=== PATIENT | male | born 1960 | race Caucasian/White ===

== ENCOUNTER 2018-07-08 14:11 | Emergency (ER) | payer MEDICARE, OTHER ==
[~2018-07-08] VITALS: Ht 177.8 cm; Wt 81.0 kg
[2018-07-08 14:21] VITALS: Ht 177.8 cm; Wt 81.0 kg
[2018-07-08] MEDS ORDERED: SOD CHLORIDE 0.9% 500 ML IV STA (17:21)
[2018-07-08] MEDS ORDERED: LEVETIRACETAM 1000 MG (PMX) 100 ML IVPB STA (17:21)
[2018-07-08] MEDS ORDERED: RISP1TAB3 PO (17:47)
[2018-07-08] MEDS ORDERED: ISOS30TA67 PO (17:47)
[2018-07-08] MEDS ORDERED: GABA-526 PO (17:47)
[2018-07-08] MEDS ORDERED: LOSA50TA14 PO (17:48)
[2018-07-08] MEDS ORDERED: LEVE10006 PO (17:49)
[2018-07-08] MEDS ORDERED: ALLO100T PO (17:51)
[2018-07-08] MEDS ORDERED: OXYB15TA PO (17:51)
[2018-07-08] MEDS ORDERED: CARB1TAB34 PO (17:52)
[2018-07-08] MEDS ORDERED: LEVO25TA6 PO (17:52)
[2018-07-08] MEDS ORDERED: MELO15TA30 PO (17:52)
[2018-07-08] MEDS ORDERED: OMEP20CA16 PO (17:53)
[2018-07-08] MEDS ORDERED: ATOR20TA38 PO (17:53)
[2018-07-08] MEDS ORDERED: CLOP75TA19 PO (17:53)
[2018-07-08] MEDS ORDERED: TRAZ-149 PO (17:54)
[2018-07-08] MEDS ORDERED: FLUO20CA22 PO (17:54)
[2018-07-08] MEDS ORDERED: NORT75CA PO (17:54)
[2018-07-08] MEDS ORDERED: METO-448 PO (17:55)
[2018-07-08] MEDS ORDERED: ABAC1TAB14 PO (17:56)
[2018-07-08] MEDS ORDERED: ICOS1CAP PO (17:57)
[2018-07-08] MEDS ORDERED: RANO500T2 PO (17:58)
[2018-07-08] MEDS ORDERED: OLME20TA20 PO (17:58)
[2018-07-08] MEDS ORDERED: ASPI-817 PO (17:58)
[2018-07-08] MEDS ORDERED: FOLI-49 PO (17:59)
[2018-07-08] MEDS ORDERED: DARU800T2 PO (17:59)
[2018-07-08] MEDS ORDERED: RITO100T PO (18:00)
[2018-07-08] MEDS ORDERED: [UNRECOGNIZED DRUG - CODE] PO (18:01)
[2018-07-08] MEDS ORDERED: CLON1TAB13 PO (18:02)
[2018-07-08] MEDS ORDERED: FER325 PO (18:03)
[2018-07-08] MEDS ORDERED: HYDR-4011 PO (18:03)
--- NOTE | 2018-07-08 19:56 | ERD ---
ER Documentation Chief Complaint Chief Complaint pt is bib friend with c/o fall s/p seizure, pt in wheelchair slightly pale HPI This is a 57-year-old male with multiple comorbidities including seizure disorder who is presenting after a fall status post a seizure this afternoon. The patient feels slightly fatigued, but he is currently at his baseline. The patient reports compliance with his medication, but sometimes he does have breakthrough seizures. The patient does not endorse any alleviating or exacerbating factors. He does not endorse a head injury. He does not currently have any headache or vision changes. The patient has had no focal deficits. The patient has had no weakness or numbness or tingling to the face or extremities. The patient denies feeling sick recently. The patient denies fever or chills. The patient does not endorse neck or back pain. The patient denies lightheadedness or dizziness. The patient has had no chest pain or trouble breathing. The patient denies nausea or vomiting. The patient denies abdominal pain. The patient denies changes to bowel movements or urination. ROS All systems reviewed and are negative except as per history of present illness. Medications Home Meds Reported Medications Hydrocodone/Acetaminophen ([place] 5-325 Tablet) 1 Each Tablet, 1 EACH PO BID, TAB 07/08/18 Ferrous Sulfate* (Ferrous Sulfate*) 325 Mg Tabec, 325 MG PO DAILY, TAB 07/08/18 Clonazepam* (Clonazepam*) 1 Mg Tablet, 1.5 MG PO QHS PRN for ANXIETY, TAB 07/08/18 Lamivudine* (Epivir*) 150 Mg Tablet, 300 MG PO DAILY, TAB 07/08/18 Ritonavir* (Norvir*) 100 Mg Tablet, 100 MG PO DAILY, TAB 07/08/18 Folic Acid* (Folic Acid*) 1 Mg Tablet, 1 MG PO DAILY, TAB 07/08/18 Darunavir* (Prezista*) 800 Mg Tablet, 800 MG PO DAILY, TAB 07/08/18 Aspirin* (Aspirin* EC) 81 Mg Tablet.dr, 81 MG PO DAILY, TAB 07/08/18 Olmesartan Medoxomil (Benicar) 20 Mg Tablet, 20 MG PO DAILY, #30 TAB 07/08/18 Ranolazine* (Ranexa*) 500 Mg Tab.sr.12h, 1000 MG PO Q12, TAB 07/08/18 Icosapent Ethyl (VASCEPA) 1 Gm Capsule, 2 GM PO BID, CAP 07/08/18 Abacavir Sulfate/Lamivudine (Abacavir-Lamivudine 600-300 mg) 1 Each Tablet, 1 EACH PO DAILY, TAB 07/08/18 Metoprolol Tartrate* (Lopressor*) 25 Mg Tab, 25 MG PO BID, #60 TAB 07/08/18 Trazodone Hcl* (Desyrel*) 50 Mg Tab, 50 MG PO QHS, #30 TAB 07/08/18 Fluoxetine Hcl* (Fluoxetine Hcl*) 20 Mg Capsule, 20 MG PO DAILY, CAP 07/08/18 Nortriptyline Hcl* (Nortriptyline Hcl*) 75 Mg Capsule, 75 MG PO HS, TAB 07/08/18 Clopidogrel Bisulfate* (Clopidogrel Bisulfate*) 75 Mg Tablet, 75 MG PO DAILY, #30 TAB 07/08/18 Omeprazole* (Omeprazole*) 20 Mg Capsule.dr, 20 MG PO DAILY, #30 CAP 07/08/18 Atorvastatin Calcium* (Atorvastatin Calcium*) 20 Mg Tablet, 20 MG PO QHS, #30 TAB 07/08/18 Meloxicam* (Mobic*) 15 Mg Tablet, 15 MG PO DAILY, #30 TAB 07/08/18 Levothyroxine Sodium* (Levothyroxine Sodium*) 25 Mcg Tablet, 25 MCG PO BEFORE BREAKFAST, #30 TAB 07/08/18 Carbidopa/Levodopa (Carbidopa-Levodopa 25-100 Tab) 1 Each Tablet, 1 EACH PO TID, TAB 07/08/18 Allopurinol* (Allopurinol*) 100 Mg Tablet, 100 MG PO DAILY, TAB 07/08/18 Oxybutynin Chloride (Oxybutynin Chloride ER) 15 Mg Tab.er.24, 15 MG PO DAILY, TAB 07/08/18 Levetiracetam* (Levetiracetam*) 1,000 Mg Tablet, 1000 MG PO BID, TAB 07/08/18 Risperidone* (Risperidone*) 1 Mg Tablet, 1 MG PO DAILY, TAB 07/08/18 Gabapentin* (Gabapentin*) 600 Mg Tablet, 1200 MG PO TID, #60 TAB 07/08/18 Isosorbide Mononitrate* (Isosorbide Mononitrate*) 30 Mg Tab.er.24h, 30 MG PO DAILY, TAB 07/08/18 Discontinued Reported Medications Losartan Potassium* (Losartan Potassium*) 50 Mg Tablet, 50 MG PO DAILY, TAB 07/08/18 Allergies Allergies: Coded Allergies: No Known Allergy (Unverified , 07/08/18) PMhx/Soc History of Surgery: Yes Anesthesia Reaction: No Hx Neurological Disorder: Yes (Seizure disorder, Parkinson disease, stroke with residual left-sided deficits) Hx Cardiac Disorders: Yes (Hypertension, CHF) Hx Psychiatric Problems: Yes (Depression, anxiety) Hx Miscellaneous Medical Probl: Yes (Hypothyroidism, HIV, GERD) Hx Alcohol Use: No (occassional) Hx Substance Use: No Hx Tobacco Use: No Smoking Status: Former smoker FmHx Family History: No diabetes Physical Exam Vitals Vital Signs Date Temp Pulse Resp B/P (MAP) Pulse Ox O2 O2 Flow FiO2 Time Delivery Rate 07/08/18 69 19 177/8 (64) 98 Room Air 17:10 07/08/18 98.3 75 20 117/76 98 14:21 (90) Physical Exam Const: No apparent distress, well-developed, well-nourished Head: Normocephalic, Atraumatic Eyes: Normal Conjunctiva. Extraocular movements intact. Pupils equal, round and reactive to light ENT: Normal External Ears, Nose and Mouth. Neck: Full range of motion. No meningismus. Resp: Clear to auscultation bilaterally, No wheezes, rales or rhonchi Cardio: Regular rate and rhythm. No murmurs, rubs or gallops Abd: Soft, non tender, non distended. Normal bowel sounds Skin: No petechiae or rashes Back: No midline tenderness. No CVA tenderness Ext: No cyanosis, or edema Neur: Awake and alert, oriented 4. Cranial nerves intact. Chronic unchanged left facial droop and left hemiplegia. Psych: Normal Mood and Affect Result Diagram: 07/08/18 1701 07/08/18 1701 Results 24 hrs Laboratory Tests Test 07/08/18 17:01 07/08/18 17:20 White Blood Count 4.9 10^3/ul Red Blood Count 3.64 10^6/ul Hemoglobin 12.2 g/dl Hematocrit 35.6 % Mean Corpuscular Volume 97.8 fl Mean Corpuscular Hemoglobin 33.5 pg Mean Corpuscular Hemoglobin Concent 34.3 g/dl Red Cell Distribution Width 13.2 % Platelet Count 248 10^3/UL Mean Platelet Volume 8.5 fl Immature Granulocytes % 0.800 % Neutrophils % 66.3 % Lymphocytes % 24.6 % Monocytes % 7.7 % Eosinophils % 0.4 % Basophils % 0.2 % Nucleated Red Blood Cells % 0.0 /100WBC Immature Granulocytes # 0.040 10^3/ul Neutrophils # 3.3 10^3/ul Lymphocytes # 1.2 10^3/ul Monocytes # 0.4 10^3/ul Eosinophils # 0.0 10^3/ul Basophils # 0.0 10^3/ul Nucleated Red Blood Cells # 0.0 10^3/ul Prothrombin Time 13.2 Sec Prothrombin Time Ratio 1.0 INR International Normalized Ratio 0.99 Sodium Level 134 mmol/L Potassium Level 4.5 mmol/L Chloride Level 95 mmol/L Carbon Dioxide Level 29 mmol/L Anion Gap 10 Blood Urea Nitrogen 16 mg/dl Creatinine 1.20 mg/dl Est Glomerular Filtrat Rate mL/min > 60 mL/min Glucose Level 93 mg/dl Calcium Level 10.2 mg/dl Total Bilirubin 0.2 mg/dl Direct Bilirubin 0.00 mg/dl Indirect Bilirubin 0.2 mg/dl Aspartate Amino Transf (AST/SGOT) 30 IU/L Alanine Aminotransferase (ALT/SGPT) < 6 IU/L Alkaline Phosphatase 71 IU/L Total Protein 8.4 g/dl Albumin 4.8 g/dl Globulin 3.60 g/dl Albumin/Globulin Ratio 1.33 Urine Color YELLOW Urine Clarity CLEAR Urine pH 5.0 Urine Specific [place] 1.010 Urine Ketones NEGATIVE mg/dL Urine Nitrite NEGATIVE mg/dL Urine Bilirubin NEGATIVE mg/dL Urine Urobilinogen NEGATIVE mg/dL Urine Leukocyte Esterase NEGATIVE Kiersten/ul Urine Hemoglobin NEGATIVE mg/dL Urine Glucose NEGATIVE mg/dL Urine Total Protein NEGATIVE mg/dl Current Medications Medications Dose Sig/Veronica Start Time Status Last (Trade) Ordered Route PRN Stop Time Admin Dose Reason Admin Sodium 500 ml @ Q1H STAT 07/08/18 DC 07/08/18 Chloride 500 mls/hr IV 17:21 18:22 07/08/18 18:20 100 ml @ ONCE STAT 07/08/18 DC 07/08/18 Levetiracetam 400 mls/hr IVPB 17:21 18:22 07/08/18 17:35 Procedures/[facility] The patient's presentation warrants further investigation. Previous medical records, if available, were reviewed. LABS The patient's laboratory testing was obtained and reviewed. No emergent treatment was required unless described below. CBC: No E/o systemic infection or thrombocytopenia. Mild normocytic anemia. Chemistry: No E/o severe acidosis or alkalosis or renal failure or liver disease or diabetic ketoacidosis PT/INR: No E/o significant coagulopathy Urine: No E/o acute infection or hematuria EKG EKG read by me: Rate/Rhythm: Regular rate and rhythm at a rate of 66 bpm Intervals: Prolonged PA interval indicating a first-degree AV block. Wide QR S indicating a nonspecific intraventricular block Curlew: Normal Impression: No evidence of acute ischemia or arrhythmia IMAGING Imaging and Radiology interpretation reviewed. CT Head FINDINGS: No acute intracranial hemorrhage is identified. No extra-axial fluid collection is seen. There is no mass effect. No midline shift is identified. The ventricles and sulci are unremarkable. The density of the visualized brain appears unremarkable. Visualized mithcell-white junctions are preserved. Athero sclerotic calcifications of the proximal intracranial arteries are noted. Calvarium and skull base are intact. Mastoid air cells and imaged paranasal sinuses grossly clear. IMPRESSION: No acute intracranial pathology identified. Electronically viewed and signed by .Franko Askew MD, MD on 07/08/2018 18:10 CXR FINDINGS: The cardiomediastinal silhouette is within normal limits. The lungs are clear. No signs of pleural fluid or pneumothorax are seen. The osseous structures and soft tissues are unremarkable. IMPRESSION: No evidence for acute cardiopulmonary disease. Electronically viewed and signed by .Lydia Maldonado MD, on 07/08/2018 18:32 TREATMENT/DISPOSITION The patient presents for breakthrough seizure. He has since returned to baseline. Patient was bolused with a dose of Keppra in the emergency department. The patient was observed in the ER without any recurrence of seizure. The patient has a reassuring physical exam. The patient is not clinically orthostatic. The patient is not dizzy. I have decreased suspicion for vertigo. The patient has no signs of emergent or symptomatic anemia. The patient does not have any emergent electrolyte or metabolic emergencies. I have decrease suspicion for a thyroid disorder. The patient is not toxic appearing. I have decreased suspicion for an infectious etiology of symptoms. The patient's EKG is reassuring. I have low suspicion for acute coronary syndrome. I do not see evidence of any emergent cardiac arrhythmia, which includes but is not limited to heart block, Brugada syndrome or WPW. The patient has no heart murmurs or rales. There is no evidence of cardiomegaly on exam or chest xray. I have low suspicion for hypertrophic cardiomyopathy. I do not see evidence of CHF. The patient does not endorse any chest or pleuritic pain. The history is negative for bleeding or clotting disorders. The patient has not been involved in any recent prolonged trips or surgeries or hospitalizations. The patient has no calf tenderness or swelling. I have decreased suspicion for PE as the etiology of symptoms. The patient has no focal deficits. The patient CT of the head is unremarkable. The neurologic exam is reassuring. I have decreased suspicion for cerebral ischemia. There was no trauma or injury. There is no personal or family history of cerebral aneurysm. I have decreased suspicion for SAH or other ICH. I have low suspicion for temporal arteritis, cavernous venous thrombosis, subdural hematoma, epidural hematoma, meningitis. DISCHARGE Upon reevaluation of the patient, symptoms have improved. No emergent diagnoses were identified. At this time, I feel that the patient stable for discharge. The patient was instructed to follow-up with a primary care physician in 1-3 days. The patient will be given strict precautions with which to return to the emergency department. Prescriptions: None The patient's blood pressure was elevated at greater than 120/80 while in the emergency department. The patient was otherwise stable with no evidence of hypertensive urgency or emergency. The patient does not require admission for blood pressure control. I have discussed with the patient the risks of hyperten mayo. I have instructed the patient to return to the ER for any new or worsening symptoms including chest pain, shortness of breath, headache, blurred vision, confusion, nausea, vomiting or LOC. I have advised the patient to follow up with the primary care physician for outpatient monitoring and treatment for hypertension in 1-3 days. Disclaimer: Inadvertent spelling and grammatical errors are likely due to EHR/dictation software use and do not reflect on the overall quality of patient care. Note that the electronic time recorded on this note does not necessarily reflect the actual time of the patient encounter. Departure Diagnosis: Primary Impression: Breakthrough seizure Additional Impressions: History of seizure disorder Normocytic anemia History of CVA with residual deficit Condition: Stable Patient Instructions: Seizure, Recurrent [Adult], Anemia Additional Instructions: Thank you for for coming to [facility] for your care today. Please ask your nurse or provider if you have questions about your care today and do not leave until all your questions have been answered. Please use any medications given as directed and follow-up with your doctor (or the doctor you were referred to) in the next 1-3 days. If you do not have a primary care doctor you may follow up at the [facility] or [facility] (listed below). You may also use motrin and tylenol as needed for fever and/or pain unless instructed otherwise by your provider or nurse. Indications for more urgent follow-up have been discussed, but you may return to the Emergency Department at ANY time for any worrisome or worsening symptoms. If you have abdominal pain, please know that no test or exam you received is perfect and you should follow up within 8 hours for continued pain. If you had any imaging studies today, such as an X-Ray or CT Scan, these studies will be reviewed later by a radiologist. You will be called if there are important findings that were not identified today, so make sure the contact information you provided at registration is correct. If you received any narcotic pain control medicine today, such as Vicodin, Morphine or Dilaudid, your coordination and judgment may be affected for a number of hours. Please do not drive or operate heavy machinery, and you may want someone to assist you at home. If you were given a prescription for narcotic medication, be aware that it is very addictive- use sparingly and only if necessary. PLEASE SEEK FURTHER EVALUATION AND MANAGEMENT AT YOUR DOCTORS OFFICE WITHIN THE NEXT 1-3 DAYS. IT IS YOUR RESPONSIBILITY TO MAKE AN APPOINTMENT FOR FOLOW-UP CARE. IF YOU HAVE A PRIMARY DOCTOR, PLEASE CALL THEIR OFFICE TO SCHEDULE AN APPOINTMENT FOR FOLLOW UP. IF YOU DO NOT HAVE A PRIMARY DOCTOR YOU CAN CALL OUR PHYSICIAN REFERRAL HOTLINE AT IF YOU CAN NOT AFFORD TO SEE A PHYSICIAN YOU CAN CHOSE FROM THE FOLLOWING [facility] CL[facility]ICS: [facility] [address] [facility]. [facility] [address] [facility] [address] [facility] [address] [facility] [address] [facility]. [facility]. [address] LYDIA MEJIA MD July 08, 2018 19:54
[2018-07-08 20:20] VITALS: BP 178/91; PULSE 66; RESP 19
== END 2018-07-08 20:52 | disposition home or self-care (01) ==
LOC: E/R 14:11
DX: G40.909 Epilepsy, unspecified, not intractable, without status epilepticus (principal); D64.9 Anemia, unspecified; E03.9 Hypothyroidism, unspecified; I50.9 Heart failure, unspecified; I10 Essential (primary) hypertension; Z79.82 Long term (current) use of aspirin; Z86.73 Personal history of transient ischemic attack (TIA), and cerebral infarction without residual deficits; Z87.891 Personal history of nicotine dependence
CPT/HCPCS: 36415; 70450; 71045; 80053; 81003; 85025; 85610; 93005; 96374; 99285; J1953; J7040